=== PATIENT | female | born 1960 | race Caucasian/White ===

== ENCOUNTER 2022-04-05 06:49 | Day surgery (SDC) | payer OTHER, SELFPAY ==
[2022-04-04 14:26] VITALS: BMI 42.7
[2022-04-05] VITALS (13 sets, daily range): BP systolic 124–176; BP diastolic 73–109; PULSE 84–99; RESP 10–19; TEMP 36.2–36.5; O2SAT 91–96
[2022-04-05] MEDS: neomycin-poly-bacitracin oint 28 gm 28 APPLIC (00:48)
[2022-04-05] MEDS: sodium chloride 0.9% 1,000 ML 30 ML IV (07:31)
[2022-04-05 07:38] LABS: Glucose Point of Care 113 mg/dL (70-110)
--- NOTE | 2022-04-05 08:07 | W.PM.OPSUD ---
Surgery/Procedure H&P Update DATE OF PROCEDURE: April 05, 2022 DATE H&P PERFORMED: 03/24/22 PRIMARY INDICATION FOR PROCEDURE: Severe mixed hearing loss PLANNED PROCEDURE: Operation Date: 04/05/22 08:20 Proposed Procedures p bone anchored hearing aid implantation [id number](Bilateral) - Bill Daily MD
[2022-04-05] MEDS: clindamycin 600 MG/50 ML PREMIX 100 MG IV (08:15)
--- NOTE | 2022-04-05 08:45 | ANES.PREANE2 ---
Pre-Anesthetic Assessment Height/Weight: Height 1.73 m Weight 127.459 kg Temp Pulse Resp BP Pulse Ox O2 Del Method 97.6 F 91 18 176/94 93 04/05/22 07:21 04/05/22 07:21 04/05/22 07:21 04/05/22 07:21 04/05/22 07:21 04/05/22 07:29 Operation Date: 04/05/22 08:20 Proposed Procedures p bone anchored hearing aid implantation [id number](Bilateral) - Bill Daily MD Familial anesthetic complications: None Was Beta Barbara taken within 24 hours: N/A Was Clonidine taken within 24 hours: N/A Last intake: Intake Last Liquid Date 04/04/22 Last Liquid Time 23:30 Last Solid Date 04/04/22 Last Solid Time 20:30 Social Tobacco and No alcohol Exam alert, oriented x 3 and regular rate & rhythm Airway Submandibular: within normal limits Cervical ROM: within normal limits Mallampati: Class II Dentition: chipped Comments: Comments: Missing some Pulmonary Chronic Obstructive Pulmonary Disease CV/HEM Hypertension Metabolic Morbid Obesity Anesthetic Plan ASA status: 3 Anesthesia: General Medications/Allergies Home Medications Medication Instructions Recorded Confirmed Last Taken Type dulaglutide 0.75 mg/0.5 mL 0.75 mg SUBCUT DIRECTED 04/04/22 04/04/22 03/31/22 History subcutaneous pen injector (Trulicity) duloxetine 60 mg capsule,delayed 60 mg PO DAILY 04/04/22 04/05/22 04/04/22 History release glimepiride 4 mg tablet 4 mg PO DAILY 04/04/22 04/05/22 04/04/22 History hydroxyzine pamoate 25 mg capsule 25 mg PO DAILY 04/04/22 04/05/22 04/04/22 History levothyroxine 125 mcg tablet 125 mcg PO DAILY 04/04/22 04/05/22 04/04/22 History lisinopril 20 mg tablet 20 mg PO DAILY 04/04/22 04/05/22 04/04/22 History rosuvastatin 20 mg tablet (Crestor) 20 mg PO DAILY 04/04/22 04/05/22 04/04/22 History sertraline 100 mg tablet (Zoloft) 100 mg PO DAILY 04/04/22 04/05/22 04/04/22 History trazodone 100 mg tablet 200 mg PO DAILY 04/04/22 04/05/22 04/04/22 History Allergies Allergy/AdvReac Type Severity Reaction Status Date / Time cephalexin [From Keflex] Allergy ALGY-Rash Verified 04/05/22 07:16 ciprofloxacin [From Cipro] Allergy ADR-Itching Verified 04/05/22 07:16 Penicillins Allergy ALGY-Redness Verified 04/05/22 07:16 of Skin shrimp Allergy ALGY-Difficulty Verified 04/05/22 07:16 Breathing Sulfa (Sulfonamide Allergy ALGY-Rash Verified 04/05/22 07:16 Antibiotics) Current Medications Generic Name Dose Route Start Last Admin Trade Name Freq PRN Reason Stop Dose Admin Sodium Chloride 1,000 mls @ 30 mls/hr 04/05/22 07:15 04/05/22 07:31 Sodium Chloride 0.9% IV 04/06/22 07:14 30 mls/hr .Q24H ANGELIKA Administration PFSH Anesthesia Social History (Updated 04/04/22 @ 12:39 by Kristin Urbina) Smoking and tobacco status: current every day smoker Data Anesthesia Cardiac Studies: No Data to Display
--- NOTE | 2022-04-05 09:28 | PM.OP ---
Operative Report Date of procedure: April 05, 2022 Pre-op diagnosis: Severe bilateral mixed hearing loss Post-op diagnosis: same Post-op findings: Same Procedure done: Left sided bone anchored hearing aid implant placement Implants: Left sided bone anchored hearing aid implant placement Specimens removed/disposition: None Pathology: none sent Surgeon: Bill Daily Ophthalmic Lens Inspector: Edward Lundberg Anesthesia: General Estimated blood loss (mL): 5 IV fluids (mL): 500 Complications: None Condition: stable Disposition: PACU Brief History: 61 yo wf with a h/o severe mixed hearing loss who desires Bone Anchored Hearing Aid placement. Procedure: The patient was identified the preoperative holding area and was taken to the operating where she was placed on the operating table in supine position. Anesthesia was obtained with general endotracheal anesthesia, and the table was turned 180 degrees. The patient's head was turned to the right exposing the left ear to the operating surgeon. The surgical site was shaved and the incision site was marked out with a surgical indicator. Measurements were taken and the 12 mm implant was indicated by the measurements taken with the 27-gauge needle and hemostat. At this point the incision area was injected with local anesthesia and the patient was then prepped and draped in the usual sterile fashion. A 5 mm punch biopsy tool was used to make the incision and the core of tissue was then removed with the Adson forceps. Hemostasis was achieved with electrocautery. The periosteum was dissected off of the mastoid with the raspatorium and a 3 mm check pilot hole was drilled using the proprietary drill bit and depth catheter. Once the deep portion of the the check pilot hole was confirmed to have adequate bone, the check pilot hole was extended to 4 mm. Again once adequate bone was confirmed, the countersink drill was used to widen the hole, and the 12 mm x 4 mm countersink drill bit was used to enlarge the check pilot hole. At this point the implant was placed using the drill set at 50 N centimeters. Once the implant was fully engaged, the hand wrench was used to tighten it down adequately. Once this was accomplished, the wound was cleaned and triple antibiotic ointment and a sterile dressing was placed on the the implant. The procedure was then terminated and control of the patient was returned to anesthesia where she underwent an uneventful reversal of anesthesia and extubation and was taken to the recovery room stable condition. There were no operative or anesthetic complications.
--- NOTE | 2022-04-05 09:43 | P.PCN_ITS ---
PACU note Narrative: VSS, Good respiratory effort, report to MACHINE DEBURRER Exam: awake
--- NOTE | 2022-04-05 09:43 | PM.PACU ---
PACU note Narrative: VSS, Good respiratory effort, report to LABORATORY PHLEBOTOMIST Exam: awake
[2022-04-05] MEDS: fentaNYL 50 mcg/mL INJ 2mL IVP (09:50)
[2022-04-05] MEDS: labetalol 5 mg/mL SDV 20mL IVP (09:54)
--- NOTE | 2022-04-05 15:58 | ANE.PACU2 ---
Inpatient post-anesthesia follow up: Airway intact: Yes Vital signs: Temperature 97.1 F Pulse Rate 84 Respiratory Rate 16 Blood Pressure 127/93 Pulse Oximetry 96 Oxygen Delivery Me thod Room Air Oxygen Flow Rate Fraction of Inspir ed Oxygen Hydration adequate: Yes Nausea and vomiting: No Pain level: 2 Mental status: Baseline
== END 2022-04-05 10:43 | disposition home or self-care (01) ==
PROVIDERS: Visit Provider Specialist
PROC: (CPT 69710; principal; 2022-04-05 08:10)
DX: H90.6 Mixed conductive and sensorineural hearing loss, bilateral (principal); J44.9 Chronic obstructive pulmonary disease, unspecified; I10 Essential (primary) hypertension; E66.01 Morbid (severe) obesity due to excess calories; Z68.41 Body mass index [BMI] 40.0-44.9, adult; F17.210 Nicotine dependence, cigarettes, uncomplicated
CPT/HCPCS: 69714; 12345; 36416; 82962; J0330; J1100; J1170; J2405; J2704; J3010; J3490; J7030; L8690